=== PATIENT | male | born 1935 | race Caucasian/White ===

== ENCOUNTER 2016-07-30 10:21 | Emergency (ER) | payer MEDICARE ==
[~2016-07-30] VITALS: Ht 175.3 cm; Wt 74.8 kg
[2016-07-30 10:40] VITALS: BP 93/56
[2016-07-30] MEDS ORDERED: FUROSEMIDE40 MG ORAL (11:15)
[2016-07-30] MEDS ORDERED: CARVEDILOL6.25 MG ORAL (11:15)
[2016-07-30] MEDS ORDERED: SINEMET 25-1001 EAC1 ORAL (11:15)
[2016-07-30] MEDS ORDERED: ELIQUIS2.5 MG PO (11:15)
[2016-07-30] MEDS ORDERED: POTASSIUM 25 M25 ME1 PO (11:15)
[2016-07-30] MEDS ORDERED: TdaP Vaccine 0.5ml Syr IM ONE (12:00)
[2016-07-30 12:57] VITALS: BP 97/61
--- NOTE | 2016-07-30 13:01 | Emergency Room Report ---
History of Present Illness General Chief Complaint: Multiple Trauma/Fall Source: Patient Present Illness HPI 81 YO M with accidental slip and hit left forearm on railing last night. No head injury, LOC. Sheared off top layer of skin, multiple abrasions. Denies pain to left hand, forearm, shoulder. Unknown last tetanus. Takes Elliquis. No other injury. Allergies: Coded Allergies: No Known Allergies (Unverified , 07/30/16) Patient History Past Medical History: see triage record, old chart reviewed Past Surgical History: none Pertinent Family History: none Social History: Denies: alcohol use, drug use, smoking Immunizations: UTD Reviewed Nursing Documentation: PMH: Agreed, PSxH: Agreed Nursing Documentation-PMH Past Medical History: No History, Except For Hx Cardiac Problems: Yes - A-fib Hx Hypertension: No Hx Pacemaker: No Hx Asthma: No Hx COPD: No Hx Diabetes: Yes - bordeline DM Hx Cerebrovascular Accident: Yes - TIA 2 years ago Hx Seizures: No Review of Systems All Other Systems: negative except mentioned in HPI Physical Exam Vital Signs Date Time Temp Pulse Resp B/P Pulse Ox O2 Delivery O2 Flow Rate FiO2 07/30/16 10:34 97.3 115 18 85/58 99 Room Air Sp02 EP Interpretation: reviewed, normal General Appearance: normal inspection, well appearing, no apparent distress, alert, GCS 15, non-toxic Head: normocephalic, atraumatic Eyes: bilateral eye EOMI, bilateral eye PERRL ENT: normal ENT inspection, hearing grossly normal, normal voice Neck: normal inspection, full range of motion, supple, no bony tend Respiratory: normal inspection, lungs clear, normal breath sounds, no respiratory distress, no retraction, no wheezing Cardiovascular #1: regular rate, rhythm, no edema Gastrointestinal: normal inspection, normal bowel sounds, non tender, soft, no guarding, no hernia Genitourinary: no CVA tenderness Musculoskeletal: normal inspection, back normal, normal range of motion, Iain' s Sign negative, other - Non tender left hand, forearm, elbow, shoulder Neurologic: normal inspection, alert, oriented x3, responsive, sort supervisor III-XII nml as tested, motor strength/tone normal, speech normal Psychiatric: normal inspection, judgement/insight normal Skin: other - left lateral forearm: Multiple superficial abrasions. No active oozing or bleeding. Medical Decision Making Diagnostic Impression: Primary Impression: Multiple injuries due to trauma Additional Impression: Abrasions of multiple sites ER Course 81 YOM with multiple abrasions left forearm s/p trip and fall last night. No active bleeding No sign of infection Tetanus updated Wounds profusely irrigated Xray negative for fx, dislocation on ED review Open abrasions covered with gauze petroleum dressing Advised PMD followup DC home Other X-Ray Diagnostic Results Other X-Ray Diagnostic Results : X-Ray Ordered: Left forearm EP Interpretation: Yes Findings: no fractures, no dislocation, no soft tissue swelling Number of Views: 2 Last Vital Signs Date Time Temp Pulse Resp B/P Pulse Ox O2 Delivery O2 Flow Rate FiO2 07/30/16 10:40 98.0 89 20 93/56 97 Room Air Status: improved Disposition: HOME, SELF-CARE Referrals: NON PHYSICIAN (PCP) EMI ANDREWS M.D. Jul 30, 2016 13:01
[2016-07-30 13:52] VITALS: BP 95/55
--- NOTE | 2016-07-30 14:03 | Diagnostic Imaging Report ---
Indications: PAIN Technique: Two views of the left forearm Comparison: None Findings: No acute fractures. No dislocations. The joint spaces are preserved. No radiopaque foreign body Impression: Negative
== END 2016-07-30 13:54 | disposition home or self-care (01) ==
LOC: EMR 11:30
DX: S50.812A Abrasion of left forearm, initial encounter (principal); W18.39XA Other fall on same level, initial encounter; Y92.89 Other specified places as the place of occurrence of the external cause; I48.91 Unspecified atrial fibrillation; R73.03 Prediabetes; Z86.73 Personal history of transient ischemic attack (TIA), and cerebral infarction without residual deficits
CPT/HCPCS: 90471; 90715; 99283